=== PATIENT | male | born 1960 | race American Indian/Alaskan Native ===

== ENCOUNTER 2018-07-08 06:28 | Emergency (ER) | payer BC, OTHER ==
[~2018-07-08] VITALS: Ht 170.2 cm; Wt 122.5 kg
[~2018-07-08 06:28] MED LIST: ASPIRIN325 MG PO; CYCLOBENZAPRINE10 MG PO; JANUVIA100 MG PO; LOSARTAN POTASS25 MG PO; NORCO 5-325 TA1 EACH PO
[2018-07-08] MEDS ORDERED: ZOFRAN ODT4 MG PO (08:45)
[2018-07-08] MEDS ORDERED: FLOMAX0.4 MG PO (08:45)
[2018-07-08] MEDS ORDERED: NORCO 10-325 T1 EACH PO (08:45)
== END 2018-07-08 09:15 | disposition home or self-care (01) ==
LOC: ED 06:28
DX: N20.1 Calculus of ureter (principal); E11.9 Type 2 diabetes mellitus without complications; Z88.8 Allergy status to other drugs, medicaments and biological substances; Z79.899 Other long term (current) drug therapy
CPT/HCPCS: 74176; 80053; 81001; 83690; 85025; 96374; 96375; 99284; J1170; J1885; J2405; J7030

== ENCOUNTER 2021-10-10 13:09 | Emergency (ER) | payer OTHER, BC ==
[~2021-10-10] VITALS: Ht 170.2 cm; Wt 122.5 kg
[~2021-10-10 13:09] MED LIST changes: +CLINDAMYCIN HC300 MG PO; +FLOMAX0.4 MG PO; +LOSARTAN POTAS100 MG PO; +NORCO 10-325 T1 EACH PO; +ONGLYZA5 MG PO; +ZOFRAN ODT4 MG PO
[2021-10-10] MEDS ORDERED: OZEMPIC0.25 MG/0. SUB-Q (13:39)
[2021-10-10] MEDS ORDERED: FLUTICASONE PRO16 GM NAS (13:40)
[2021-10-10] MEDS ORDERED: HYDROCODON-ACE1 EA10 PO (15:16)
== END 2021-10-10 15:45 | disposition home or self-care (01) ==
LOC: ED 13:09
DX: S09.90XA Unspecified injury of head, initial encounter (principal); S30.0XXA Contusion of lower back and pelvis, initial encounter; W00.0XXA Fall on same level due to ice and snow, initial encounter; E11.9 Type 2 diabetes mellitus without complications; Z88.8 Allergy status to other drugs, medicaments and biological substances; Z79.899 Other long term (current) drug therapy
CPT/HCPCS: 99283

== ENCOUNTER 2021-10-21 12:50 | Emergency (ER) | payer BC, OTHER ==
[~2021-10-21] VITALS: Ht 170.2 cm; Wt 122.5 kg
[~2021-10-21 12:50] MED LIST changes: +FLUTICASONE PRO16 GM NAS; +HYDROCODON-ACE1 EA10 PO; +OZEMPIC0.25 MG/0. SUB-Q
--- OUTSIDE RECORDS SUMMARY | 2021-10-21 12:52 | XMS ---
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 Artie has no Care Guidelines for this patient. [place] VIS[facility] COUNT (12 MO.) [facility] TOTAL 3 NOTE: Visits indicate total known visits. ED/C VISIT TRACKING (12 MO.) [facility]21 12:[facility]: Emergency COMPLAINT: - STOMACH PAIN 10/10/2021 13:10 [facility] TYPE: Emergency COMPLAINT: - TAILBONE, HEAD INJURY DIAGNOSES: - Other longterm (current) drug therapy - Type 2 diabetes mellitus without complications - Allergy status to other drugs, medicaments and biological substances - Unspecified injury of head, initial encounter - Contusion of lower back and pelvis, initial encounter - Fall on same level due to ice and snow, initial encounter 10/21/2020 11:09 [facility] [place] TYPE: Emergency COMPLAINT: - SKIN PROBLEM DIAGNOSES: - Type 2 diabetes mellitus without complications - Allergy status to other drugs, medicaments and biological substances - Allergy status to other drugs, medicaments and biological substances - Other longterm (current) drug therapy - Cutaneous abscess of groin INPATIENT VISIT TRACKING (12 MO.) No inpatient visits to display in this time frame [id number]
[2021-10-21] MEDS ORDERED: FLOMAX0.4 MG PO (16:57)
[2021-10-21] MEDS ORDERED: HYDROCODON-ACE1 EA11 PO ×2 (16:57)
[2021-10-21] MEDS ORDERED: ONDANSETRON ODT8 MG PO (16:57)
== END 2021-10-21 17:20 | disposition home or self-care (01) ==
LOC: ED 12:50
DX: N20.1 Calculus of ureter (principal); E11.9 Type 2 diabetes mellitus without complications; Z88.8 Allergy status to other drugs, medicaments and biological substances; Z79.899 Other long term (current) drug therapy
CPT/HCPCS: 74176; 80048; 80053; 81001; 96374; 96375; 96376; 99284-25; A9270; J1170; J1885; J2405; J7030

== ENCOUNTER 2021-10-22 17:54 | Emergency (ER) | payer BC, OTHER ==
[~2021-10-22] VITALS: Ht 170.2 cm; Wt 122.5 kg
[~2021-10-22 17:54] MED LIST changes: +HYDROCODON-ACE1 EA11 PO; +ONDANSETRON ODT8 MG PO
--- OUTSIDE RECORDS SUMMARY | 2021-10-22 17:58 | XMS ---
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 Artie has no Care Guidelines for this patient. [place] VISIT COUNT (12 MO.) 3 [facility] TOTAL 3 NOTE: Visits indicate total known visits. ED/C VISIT TRACKING (12 MO.) 10[facility]22[facility]2021 17[facility] Emergency COMPLAINT: - LOWER ABDOMEN PAIN 10/21/2021 12:50 [facility] OR TYPE: Emergency COMPLAINT: - STOMACH PAIN 10/10/2021 13:10 [facility] OR TYPE: Emergency COMPLAINT: - TAILBONE, HEAD INJURY DIAGNOSES: - Other usp (current) drug therapy - Type 2 diabetes mellitus without complications - Allergy status to other drugs, medicaments and biological substances - Unspecified injury of head, initial encounter - Contusion of lower back and pelvis, initial encounter - Fall on same level due to ice and snow, initial encounter INPATIENT VISIT TRACKING (12 MO.) No inpatient visits to display in this time frame [id number]
[2021-10-23] MEDS ORDERED: TAMSULOSIN HCL0.4 MG PO ×2 (15:00)
[2021-10-23] MEDS ORDERED: ONDANSETRON ODT8 MG PO ×2 (15:02)
[2021-10-23] MEDS ORDERED: ALLEGRA ALLERG180 MG PO ×2 (17:15)
== END 2021-10-22 21:57 | disposition home or self-care (01) ==
LOC: ED 17:54
DX: N20.1 Calculus of ureter (principal); E11.9 Type 2 diabetes mellitus without complications; Z88.8 Allergy status to other drugs, medicaments and biological substances; Z79.899 Other long term (current) drug therapy
CPT/HCPCS: 74176; 80048; 81001; 85025; 96374; 96375; 99284-25; J1170; J1885; J2405; J7030

== ENCOUNTER 2021-10-23 09:40 | Inpatient (IN) | payer BC, OTHER ==
[~2021-10-23] VITALS: Ht 170.2 cm; Wt 122.2 kg
--- OUTSIDE RECORDS SUMMARY | 2021-10-23 14:16 | XMS ---
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 PHONE: [phone] Artie has no Care Guidelines for this patient. Care History Medical/Surgical 10/23/2021 [facility] - PATIENT IS [facility] ELIGIBLE, \T\middot;\T\nbsp; PLEASE REFER PATIENT TO [facility] FOR NON EMERGENT MEDICAL NEEDS. \T\middot;\T\nbsp; [facility] CAN SEE PATIENTS SAME DAY FOR APTS IF PATIENT CALLS FIRST THING IN THE MORNING. E.D. VISIT COUNT (12 MO.) [address] [place] [address] TOTAL 4 NOTE: Visits indicate total known visits. 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
[2021-10-23] MEDS ORDERED: TAMSULOSIN HCL0.4 MG PO ×2 (15:00)
[2021-10-23] MEDS ORDERED: ONDANSETRON ODT8 MG PO ×2 (15:02)
[2021-10-23] MEDS ORDERED: ALLEGRA ALLERG180 MG PO ×2 (17:15)
--- NOTE | 2021-10-23 20:22 | NUR ---
PT RETURNED FROM PACU @2015. A/O, HAD BEEN INCONT POST SURGERY, BUT UP TO TOLIET TO VOID, UNMEASURED, SEROSANGUINOUS URINE. PT IN ROOM WITH PT.
--- NOTE | 2021-10-23 20:30 | NUR ---
PT TO ROOM 119 FROM PACU WITH RN. REPORTS RECEIVED. ORDERS RECEIVED. PT ALERT AND ORIENTED. DENIES PAIN. REPORTS "BURNING" IN BLADDER/URETHRA AREA. DENIES FLANK PAIN. NO NAUSEA. ICE WATER AND BROTH PROVIDED. PT UP TO BR X 2 WITH SBA TO VOID RED COLORED URINE. CLEAN BRIEF PROVIDED FOR INCONTINENCE AND BLOODY DRAINAGE. POST OP VS OBTAINED. PT ORIENTED TO ROOM AND NURSE CALL LIGHT. FAMILY IN ROOM. CALL LIGHT IN REACH.
--- NOTE | 2021-10-23 20:51 | NUR ---
10/23/212050 Lluvia Mcnair 194 PT ARRIVED IN PACU RESTLESS. BLOOD SUGAR 85, USING PT'S PHONE FOR READING. DR AND ANESTHESIA AWARE. NO NEW ORDERS. 1949 C/O URGE TO VOID. ATTEMPTING TO USE URINAL WITH NO SUCCESS. 1999 ATTENDS PLACED ON PT FOR COMFORT. 2016 TO ROOM 119. UP TO BATHROOM WITH ONE PERSON ASSIST. VOIDED RED COLORED URINE. BACK IN BED. REPORT GIVEN TO RN. 2019 PT GLASSES AND PHONE RETURNED TO PT IN HIS ROOM. AND RN AT BEDSIDE.
--- NOTE | 2021-10-23 21:40 | NUR ---
SCHEDULED MEDS ADMINISTERED PER EMAR. PT BLOOD SUGAR WNL. SLIDING SCALE INSULIN HELD. PT DENIES PAIN OR NAUSEA. UP TO BR TO VOID RED COLORED URINE. BACK TO BED. POST OP VS OBTAINED. PT REPORTS NO BM FOR THE LAST THREE DAYS. NIO FOR STOOL SOFTENER ENTERED.
--- NOTE | 2021-10-23 21:55 | NUR ---
PT CALLED, INDEPENDENTLY INTO AND OUT OF BR, AND BACK TO BED. ASSIST WITH IV. SERSANG. URINE. CALL LIGHT WITHIN REACH. ON COUCH READING BOOK.
--- NOTE | 2021-10-23 22:50 | NUR ---
POST OP VS COMPLETE, WNL. STOOL SOFTENER ADMINISTERED. PT DENIES PAIN OR NAUSEA. CHIPS PROVIDED PER REQUEST. UP TO BR TO VOID. BACK TO BED. NO FURTHER NEEDS.
--- NOTE | 2021-10-23 23:23 | NUR ---
CALL LIGHT ANSWERED. PT UP TO BR TO VOID 300 ML RED COLORED URINE. BACK TO BED, RG WELL. POST OP VS COMPLETE. PT DENIES THE NEED FOR PAIN MEDICATION AT THIS TIME. NO FURTHER NEEDS. CALL LIGHT IN REACH.
--- NOTE | 2021-10-24 00:05 | NUR ---
PT UP TO BR WITH SBA TO VOID 200 ML RED COLORED URINE. BACK TO BED. IVF IFNUSING. NO FURTHER NEEDS.
--- NOTE | 2021-10-24 01:01 | NUR ---
PT UP TO BR TO VOID 200 ML RED COLORED URINE. BACK TO BED. SANDWICH BOX AND FRESH ICE WATER PROVIDED.
--- NOTE | 2021-10-24 01:29 | NUR ---
CALL LIGHT ANSWERED. PT UP TO BR TO VOID 150 ML RED COLORED URINE. GAIT STEADY. BACK TO BED. DENIES PAIN OR NAUSEA. VS OBTAINED. NO FURTHER NEEDS.
--- NOTE | 2021-10-24 02:57 | NUR ---
PT UP TO BR WITH SBA TO VOID 200 ML RED COLORED URINE. CLEAN BRIEF PROVIDED D/T BLOODY DISCHARGE. BACK TO BED. NO FURTHER NEEDS.
--- NOTE | 2021-10-24 05:03 | NUR ---
CALL LIGHT ANSWERED. PT UP TO BR WITH SBA TO VOID 200 ML RED COLORED URINE. BACK TO BED, RG WELL. PRN FOR PAIN ADMINISTERED FOR C/O BURNING WITH URINATION. NO FURTHER NEEDS. CALL LIGHT IN REACH.
--- NOTE | 2021-10-24 06:52 | NUR ---
PT UP TO BR TO VOID 200 ML RED COLORED URINE. PT INCONTINENT WELL. GUERRERO CARE SUPPLIES PROVIDED. BACK TO BED, RG WELL. VS AND I&O OBTAINED. PT DNEIES FURTHER NEEDS. CALL LIGHT IN REACH.
--- NOTE | 2021-10-24 07:34 | NUR ---
REPORT RECIEVED FROM ARGELIA GALINDO.
--- NOTE | 2021-10-24 09:12 | NUR ---
MORNING ASSESSMENT DONE. PATIENT GIVEN OXYBUTIN AND OXYCODONE FOR 5/10 LEFT SIDE/URETERAL PAIN. PATIENT REFUSED S/S INSULIN, RECHECKED BG AND IS 124. PATIENT HAS BEEN UP TO VOID 200ML OF BLOOD TINGED URINE. SPOUSE IS IN ROOM WITH PATIENT.
--- NOTE | 2021-10-24 10:27 | NUR ---
MET WITH PATIENT TO DISCUSS HIS DIET WHICH IS A 60 GM CONSISTENT CARB DIET. HE HAS BEEN EATING A LOW CARB DIET AT HOME AND WAS DOING VERY WELL WITH IT. I SHOWED HIM THE MENU WITH THE HOUSE MEAL OF THE DAY WHICH HE DID NOT WANT. I SHOWED HIM THE OPTIONS ON THE BACK AND HE WAS ABLE TO CHOOSE ITEMS HE WANTED FOR LUNCH. HE WEARS A CONTINUOUS GLUCOSE MONITOR WHICH HAS HELPED HIM QUITE A BIT WITH MANAGING HIS BLOOD SUGARS. HE IS MOTIVATED TO LOWER HIS A1C. NO OTHER NUTRITION INTERVENTION AT THIS TIME. WILL REMAIN AVAILABLE IF NEEDED.
--- NOTE | 2021-10-24 10:28 | NUR ---
PATIENT IN BED RESTING AT THIS TIME. VITALS AND I&O'S CHARTED. CALL LIGHT IN REACH. NO FURTHER NEEDS AT THIS TIME.
--- NOTE | 2021-10-24 11:13 | NUR ---
DR. MCMAHAN IN TO SEE PATIENT. PATIENT REPORTS LOWER ABD PAIN 5/10 POST OXYCODONE. PATIENT DOES REPORT FEELING BLOATED AFTER MIRILAX AND HAS NOT HAD A BM FOR OVER [address]AN TO [address] DR. SAMUEL, PATIENT REQUESTS FURTHER INFORMATIONS FROM HER.
--- NOTE | 2021-10-24 11:30 | NUR ---
Spoke with pt, Dr. Hilton and RN Jayne in room. Pt upset as he does not want to go home today. Dr. Hilton attempting to explain, Dr. Rose is ready for pt to be sent home and will follow up as OP. Dr. Hilton and Jayne left and assessment completed. Pt lives near [place] with his , Marlen. He is usually very active, hunting fishing etc. He denies needs at home, but is hesitant as he was very painful and ill the last few days. He is worried his stone on the L will descend. He does not want to go through this pain again. Discussed Dr. Rose is being called to speak with him. With further discussion, pt states he is concerned he will go home and have stroke. He staes multiple family members have had strokes and he is concerned if he has as much pain as he did the last few days he will have a stroke. We discussed strokes don't normally occur from pain. Pt's arrives and this seems to boost his mood. Awaiting visit from Dr. Rose. Pt plans on dc to home when cleared medically.
--- NOTE | 2021-10-24 11:37 | NUR ---
CALL TO DR. SAMUEL, SHE WILL BE IN TO SEE PATIENT AT 1240 TODAY. BMP LAB ENTERED, LAB CALLED TO COME DRAW LABS. UPDATED DR. MCMAHAN AND PATIENT.
[2021-10-24] MEDS ORDERED: OXYCODONE HCL5 MG PO ×2 (13:29)
[2021-10-24] MEDS ORDERED: CEPHALEXIN750 MG PO ×2 (13:30)
--- NOTE | 2021-10-24 15:45 | OR ---
[facility] [address] [place], [place] [address] Signed DATE OF OPERATION: 10/23/2021 SURGEON: Ayaan Samuel MD PREOPERATIVE DIAGNOSES: 1. Acute kidney injury. 2. Bilateral obstructing ureteral calculi. POSTOPERATIVE DIAGNOSES: 1. Acute kidney injury. 2. Bilateral obstructing ureteral calculi. 3. 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 NAMES OF PROCEDURES: 1. Diagnostic cystoscopy with bilateral retrograde pyelograms. 2. Bilateral ureteroscopy with basket extraction of right ureteral calculus. 3. Bilateral ureteral stent insertion. 4. Urethral dilation using Wexford sounds from 14-Surinamese to 26-Surinamese. ANESTHESIA: General. ESTIMATED BLOOD LOSS: None. COMPLICATIONS: None. SPECIMENS: Right ureteral calculus sent to the lab for stone analysis. DRAINS: Bilateral 6 x 26 cm double-J ureteral stents inserted into both kidneys. INDICATION FOR PROCEDURE: Mr. Hemphill is a very pleasant 61-year-old gentleman with a history of hypertension and previous nephrolithiasis, who presented to the emergency department earlier today with continued complaints of right flank pain and new onset left-sided flank pain. He had undergone a CT scan the day before, which revealed a 3-4 mm distal right ureteral calculus along with a new 2 mm left proximal ureteral calculus. Although there was no Electronically Signed By: AYAAN SAMUEL MD 10/24/21 1545 PATIENT NAME: STAN HEMPHILL III OPERATIVE REPORT DATE OF : 64 REPORT #: [id number] PHYSICIAN: AYAAN SAMUEL MD PCP: [facility] REPORT IS CONFIDENTIAL AND NOT TO BE RELEASED WITHOUT AUTHORIZATION [facility] [address] [place], [place] [address] Signed obvious hydronephrosis noted in either kidney, he was noted to be experiencing acute kidney injury. His creatinine on his initial visit on October 16 or so was 1.1. A couple days ago, his creatinine bumped to 1.6 and then as of today, his creatinine was 1.88. He was admitted to the hospitalist service and I have been consulted for definitive management of his bilateral ureteral calculi. OPERATIVE FINDINGS: 1. On cystoscopy, there was no evidence of any suspicious masses, lesions, or stones. Bilateral ureteral orifices are in their normal anatomic location. The right ureteral orifice is noted to be actively effluxing urine. 2. Bilateral retrograde pyelogram revealed an obvious 2 mm distal left ureteral calculus in the left ureter. There was no obvious filling defect or calculus noted in the right ureter on retrograde pyelogram. Bilateral renal pelves appeared mostly normal with only mild blunting of the calyces. 3. Diagnostic left ureteroscopy was performed which revealed rather severe stenosis of the distal left ureter. I attempted to pass the semi-rigid scope through the stenotic distal ureter over a wire, however, I was unsuccessful. At that time, the decision was made to go ahead and place a 6 x 26 cm ureteral stent. 4. Flexible right nephroureteroscopy was performed which revealed no evidence of stones in the right renal pelvis. I did locate the 4 mm stone in the distal right ureter. The stone was extracted using a Zero tip basket without difficulty. After the stone was extracted, a 6 x 26 cm double-J ureteral stent was inserted into the right collecting system. DESCRIPTION OF PROCEDURE: After informed consent was obtained, the patient was taken back to the operating room. He was transferred from the [facility] to the operating room table, where general anesthesia was induced. He was placed in the dorsal lithotomy position and his genitalia were prepped and draped in a standard sterile fashion. Using a 30-degree lens on a 22.5-Surinamese introducer, rigid cystoscope was inserted through his urethra and into his bladder under direct visualization. Prior to insertion of the camera, the patient's urethra was dilated from 14-Surinamese to 26-Surinamese without difficulty. Once inside the bladder, I performed a thorough diagnostic cystoscopy. Please see above findings. A cone-tipped catheter was then advanced to the level of the left ureteral orifice. A left retrograde pyelogram was performed. Please see above findings. The same process was performed using a cone-tipped catheter on the right side. Again, please see above findings. I decided to approach the left side 1st, so I attempted to pass a semi-rigid ureteroscope over a Sensor wire into the left distal ureter. The left distal ureter was very stenotic and I was unable to safely pass the ureteroscope through the transmural portion of the ureter and into the more dilated proximal portion of the ureter where the 2 mm stone was present. To avoid any iatrogenic injury to the distal Electronically Signed By: AYAAN SAMUEL MD 10/24/21 1545 PATIENT NAME: STAN HEMPHILL III OPERATIVE REPORT DATE OF : 64 REPORT #: [id number] PHYSICIAN: AYAAN SAMUEL MD PCP: [facility] REPORT IS CONFIDENTIAL AND NOT TO BE RELEASED WITHOUT AUTHORIZATION [address] [address] Signed ureter, I made the decision to abort any attempt to extract the 2 mm stone. Instead, I passed a 6 x 26 cm double-J ureteral stent over the indwelling Sensor wire and into the left collecting system under direct visualization. Adequate coil was seen in the left collecting system once the Sensor wire was pulled. I then turned my attention to the right ureter. Again, I attempted to pass a semi-rigid scope over a Sensor wire into the right ureteral orifice. I did meet some resistance, so I removed the semi-rigid scope and decided to pass a 09/02 ureteral access sheath into the right collecting system under fluoroscopic guidance. I was able to pass the sheath up into the proximal right ureter without any incident. I advanced a flexible ureteroscope through the sheath and into the right collecting system. Please see above findings. I then slowly withdrew the ureteroscope for complete evaluation of the proximal and mid right ureter. I finally found the 4 mm stone in the distal right ureter. I was able to easily extract the stone in toto using a Zero tip basket and the flexible ureteroscope. The stone was placed in the specimen cup to be sent to the lab for stone analysis. Once I was satisfied that the right ureter was completely free of stones, I reinserted a Sensor wire and then removed the ureteral access sheath. Over the Sensor wire, I passed a 6 x 26 cm double-J ureteral stent into the right collecting system under direct visualization. Once I pulled the Sensor wire, an adequate proximal coil was noted within the right renal pelvis. Cystoscopy revealed adequate distal coils on both sides. The patient's bladder was then drained and the cystoscope was removed. The procedure was then terminated. The patient tolerated the procedure well with no complication. He will now be transferred to the postanesthesia care unit in stable condition. DISPOSITION: I discussed the details of today's procedure with the patient's and answered all of her questions. I notified her that I was able to successfully extract the right ureteral calculus, however, I was unable to extract the 2 mm left ureteral calculus due to the presence of distal left ureteral stenosis. The patient will need to return to the operating room in approximately two weeks to undergo ureteroscopy with extraction of his 2 mm left ureteral calculus, followed by bilateral ureteral stent removal. In the interim, he will head back to the floor and be given IV antibiotics along with IV hydration. His BMP will be repeated in the morning to be sure that his renal function is returning to his baseline. Ayaan Samuel MD AR/MODL /[id number] Electronically Signed By: AYAAN SAMUEL MD 10/24/21 1545 PATIENT NAME: STAN HEMPHILL III OPERATIVE REPORT DATE OF : 64 REPORT #: [id number] PHYSICIAN: AYAAN SAMUEL MD PCP: [facility] REPORT IS CONFIDENTIAL AND NOT TO BE RELEASED WITHOUT AUTHORIZATION [facility] [address] [place] [id number] Signed Copies: ~ Electronically Signed By: AYAAN SAMUEL MD 10/24/21 1545 PATIENT NAME: STAN HEMPHILL III OPERATIVE REPORT DATE OF : 64 REPORT #: [id number] PHYSICIAN: AYAAN SAMUEL MD [id number] REPORT IS CONFIDENTIAL AND NOT TO BE RELEASED WITHOUT AUTHORIZATION
--- NOTE | 2021-10-25 16:35 | EKG ---
[facility] [address] [place] [address] Signed Normal sinus rhythm Normal ECG No previous ECGs available Confirmed by PEDRO MCMAHAN MD ([id number]) on 10/25/2021 4:34:56 PM Electronically Signed By: PEDRO MCMAHAN MD 10/25/21 1635 PATIENT NAME: JOBYSTAN III Electrocardiogram DATE OF : 64 PHYSICIAN: PEDRO MCMAHAN MD REPORT #: [id number] REPORT IS CONFIDENTIAL AND NOT TO BE RELEASED WITHOUT AUTHORIZATION
== END 2021-10-24 14:10 | disposition home or self-care (01) | DRG 660 ==
LOC: ED 09:40 → MS 13:49
PROVIDERS: Urology; ADMIT Internal Medicine; ATTEND Internal Medicine
PROC: 0T788DZ Dilation of Bilateral Ureters with Intraluminal Device, Via Natural or Artificial Opening Endoscopic (ICD-10-PCS; principal; 2021-10-23 18:00)
PROC: 0TC78ZZ Extirpation of Matter from Left Ureter, Via Natural or Artificial Opening Endoscopic (ICD-10-PCS; 2021-10-23 18:00)
PROC: 0TC68ZZ Extirpation of Matter from Right Ureter, Via Natural or Artificial Opening Endoscopic (ICD-10-PCS; 2021-10-23 18:00)
DX: N20.1 Calculus of ureter (principal); N17.9 Acute kidney failure, unspecified; E11.9 Type 2 diabetes mellitus without complications; I10 Essential (primary) hypertension; G89.29 Other chronic pain; Z98.890 Other specified postprocedural states; Z88.8 Allergy status to other drugs, medicaments and biological substances; Z79.899 Other long term (current) drug therapy
CPT/HCPCS: 00918; 74420; 80048; 81001; 85025; 93005; 93010; 96374; 96375; 96376; 99285-25; C1769; C2617; C9803; J0330; J0461; J0696; J1100; J1170; J1885; J2250; J2405; J2704; J2765; J3010; J7030; J7121; Q9967; U0003

== ENCOUNTER 2021-11-13 10:39 | Emergency (ER) | payer BC, OTHER ==
[~2021-11-13] VITALS: Ht 170.2 cm; Wt 115.0 kg
[~2021-11-13 10:39] MED LIST changes: +ALLEGRA ALLERG180 MG PO; +B-STRESS CAP2000 MCG PO; +CEPHALEXIN750 MG PO; +OSTERA TABLET1 EACH PO; +OXYCODONE HCL5 MG PO; +TAMSULOSIN HCL0.4 MG PO
--- OUTSIDE RECORDS SUMMARY | 2021-11-13 10:46 | XMS ---
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 Care History Medical/Surgical 10/30/2021 [facility] Contacted [facility] STOUTwarehouse shipping supervisorHzatiio-Onhuxt-zomrtluu of recent ED visits. They will follow up with the patient. 10/23/2021 [facility] - PATIENT IS [facility] ELIGIBLE, \T\middot;\T\nbsp; PLEASE REFER PATIENT TO [facility] FOR NON EMERGENT MEDICAL NEEDS. \T\middot;\T\nbsp; [facility] CAN SEE PATIENTS SAME DAY FOR APTS IF PATIENT CALLS FIRST THING IN THE MORNING. E.D. VISIT COUNT (12 MO.) 5 [facility]. TOTAL 5 NOTE: Visits indicate total known visits. ED/UCC VISIT TRACKING (12 MO.) 11/13/2021 10:40 [facility] TYPE: Emergency COMPLAINT: - UNABLE TO USE R ARM/HAND 10/23/2021 09:41 [facility] TYPE: Emergency COMPLAINT: - L FLANK PAIN 10/22/2021 17:55 [facility] [place] TYPE: Emergency COMPLAINT: - LOWER ABDOMEN PAIN DIAGNOSES: - Allergy status to other drugs, medicaments and biological substances - Calculus of ureter - Other meterman (current) drug therapy - Type 2 diabetes mellitus without complications - Unspecified abdominal pain 10/21/2021 12:50 [facility] [place] TYPE: Emergency COMPLAINT: - STOMACH PAIN DIAGNOSES: - Other chcf (current) drug therapy - Type 2 diabetes mellitus without complications - Allergy status to other drugs, medicaments and biological substances - Calculus of ureter - Unspecified abdominal pain 10/10/2021 13:10 [facility] [place] TYPE: Emergency COMPLAINT: - TAILBONE, HEAD INJURY DIAGNOSES: - Other chcf (current) drug therapy - Type 2 diabetes mellitus without complications - Allergy status to other drugs, medicaments and biological substances - Unspecified injury of head, initial encounter - Contusion of lower back and pelvis, initial encounter - Fall on same level due to ice and snow, initial encounter INPATIENT VISIT TRACKING (12 MO.) 10/23/2021 13:[address] [facility] [place] TYPE: Medical Surgical COMPLAINT: - BILAT URETERAL STONES DIAGNOSES: - Other chronic pain - Other chcf (current) drug therapy - Other specified postprocedural states - Type 2 diabetes mellitus without complications - Other specified postprocedural states - Calculus of ureter - Essential (primary) hypertension - Acute kidney failure, unspecified - Other chcf (current) drug therapy - Acute kidney failure, unspecified - Allergy status to other drugs, medicaments and biological substances - Allergy status to other drugs, medicaments and biological substances - Other chronic pain - Essential (primary) hypertension - Type 2 diabetes mellitus without complications [email or web address]
== END 2021-11-13 11:32 | disposition home or self-care (01) ==
LOC: ED 10:39
DX: M25.511 Pain in right shoulder (principal); E11.9 Type 2 diabetes mellitus without complications; Z88.8 Allergy status to other drugs, medicaments and biological substances; Z91.018 Allergy to other foods; Z79.899 Other long term (current) drug therapy
CPT/HCPCS: 99283

== ENCOUNTER 2022-08-14 10:25 | Day surgery (SDC) | payer OTHER ==
[~2022-08-14] VITALS: Ht 170.2 cm; Wt 115.9 kg
[~2022-08-14 10:25] MED LIST changes: +ASPIRIN81 MG PO
--- NOTE | 2022-08-14 12:27 | NUR ---
08/14/22 1227 Lluvia Mcnair 1205 PT ARRIVED IN PACU SLEEPY WITH NO C/O'S. ABD SOFT AND PASSING FLATUS. 1215 DR AT BEDSIDE TALKING WITH PT. ALL QUESTIONS ANSWERED. 1225 RESTING. REU.
--- NOTE | 2022-08-15 10:58 | OR ---
[facility] [address], [place] [address] Signed DATE OF OPERATION: 08/14/2022 SURGEON: Griffin Trinh MD PREOPERATIVE DIAGNOSIS: History of polyps. POSTOPERATIVE DIAGNOSES: 1. Sigmoid diverticulosis. 2. Polyps x3. PROCEDURE: Total colonoscopy to cecum with cold morcellation polypectomy x1 and cold snare polypectomy x2 (one specimen lost). ANESTHESIA: Intravenous sedation, fentanyl 200 mcg and Versed 10 mg. INDICATION: This 62-year-old [place] man, who is a patient of Dr. Jaffe at [facility] and underwent colonoscopy greater than [address] Dom Copeland. The polyps were said to have been identified. He was admitted at this time to undergo colonoscopy for surveillance. He understands the risks of bleeding, infection, and perforation. FINDINGS: The prep was good. Complete colonoscopy was undertaken of the cecum. He had numerous diverticula of the sigmoid colon. He had 3 polyps in total, all of them small, none of them malignant in appearance. All were on the left side. Two were in the left colon, two in the sigmoid. One of the snared polyps was lost, was not sent for pathology. PROCEDURE IN DETAIL: The patient was brought to the endoscopy suite and placed in lateral decubitus position given intravenous sedation to the points of slurred speech and nystagmus with full cardiopulmonary monitoring. Digital rectal examination was normal. An Olympus video colonoscope was passed in the rectum and manipulated noting diverticulosis of the sigmoid and left colon. Scope was ultimately passed to the cecum. The ileocecal valve and appendiceal orifice were normal. Scope was withdrawn. Examination showed no sign of abnormality until approximately 90 cm from the anal verge, where a small sessile polyp was noted, this was excised with cold morcellation technique. Further withdrawal of scope showed 2 small polyps of much larger than the diminutive polyp. Both were Electronically Signed By: GRIFFIN TRINH MD 08/15/22 1058 PATIENT NAME: STAN HEMPHILL III OPERATIVE REPORT DATE OF : 64 REPORT #: [id number] PHYSICIAN: GRIFFIN TRINH MD PCP: [facility] REPORT IS CONFIDENTIAL AND NOT TO BE RELEASED WITHOUT AUTHORIZATION [facility] [address], [place] [address] Signed excised with cold snare technique, one of which was lost in retrieval despite efforts to avoid that. Further withdrawal of scope showed no other findings of concern. The scope was removed. The patient was taken to the recovery room in good condition. CONCLUDING DIAGNOSES: 1. Diverticulosis. 2. Polyps x3. PLAN: Recommend repeat colonoscopy in 5 years or sooner if clinically indicated. He will return to the ongoing care of Dr. Jaffe at [facility]. MD JT Estrada/YOSSIL /[id number] Copies: ~ Electronically Signed By: GRIFFIN TRINH MD 08/15/22 1058 PATIENT NAME: STAN HEMPHILL CROW OPERATIVE REPORT DATE OF : 64 REPORT #: [id number] PHYSICIAN: GRIFFIN TRINH MD PCP: [facility] REPORT IS CONFIDENTIAL AND NOT TO BE RELEASED WITHOUT AUTHORIZATION
--- NOTE | 2022-08-16 15:56 | PATH ---
[facility] [address] [facility] [place], [place] [address] Signed SPECIMEN(S): A DESCENDING/LEFT COLON POLYP SPECIMEN(S): B SIGMOID POLYP SPECIMEN SOURCE: A. DESCENDING/LEFT COLON POLYP B. SIGMOID POLYP CLINICAL HISTORY: Hx of polyps. Post op: Polyps x 3. FINAL PATHOLOGIC DIAGNOSIS: A. Descending / left colon polyp: - Hyperplastic polyp (one fragment). B. Sigmoid polyp: - Tubular adenoma (one fragment). JVR:[facility]:C2NR MICROSCOPIC EXAMINATION: Histologic sections of all submitted blocks are examined by light microscopy. These findings, together with the gross examination, support the pathologic diagnosis. GROSS DESCRIPTION: Two specimens are received in two containers, labeled "Stan Carias." A. The specimen, labeled " Stan Carias," and designated on the requisition "descending polypectomy," is received in formalin and consists of one tierney soft tissue fragment(s) that measure 0.3 cm in greatest dimension. The specimen is entirely submitted in cassette (A1). B. The specimen, labeled " Stan Carias, #2," and designated on the requisition "sigmoid polyp," is received in formalin and consists of one tierney soft tissue fragment(s) that measure 0.6 cm in greatest dimension. The specimen is inked, bisected, and entirely submitted in cassette (B1). FB (under the direct supervision of a pathologist) The Gross Description was prepared using a voice recognition system. The report was reviewed for accuracy; however, sound-alike word errors, addition and/or deletions may occur. If there is any question about this report, please contact Client Services. PERFORMING LABORATORY: The technical component was performed by [employer], Anat Cravenmartin Mark, PATIENT NAME: STAN CARIAS III PATHOLOGY DATE OF : 64 REPORT #: [id number] PHYSICIAN: THANH PATHOLOGY PCP: [facility] REPORT IS CONFIDENTIAL AND NOT TO BE RELEASED WITHOUT AUTHORIZATION [facility] [address] [place] [id number] [place] [address] (CLIA# [id number]). Diagnostician: Aditya Alba MD Pathologist Electronically Signed 08/16/2022 Copies: ~ PATIENT NAME: STAN CARIAS III PATHOLOGY DATE OF : 64 REPORT #: [id number] PHYSICIAN: THANH PATHOLOGY PCP: [facility] REPORT IS CONFIDENTIAL AND NOT TO BE RELEASED WITHOUT AUTHORIZATION
== END 2022-08-14 13:00 | disposition home or self-care (01) ==
LOC: OPS 10:25 → DS 10:28 → OPS 12:00 → DS 13:00
PROVIDERS: ATTEND Surgery
PROC: 0DBN8ZX Excision of Sigmoid Colon, Via Natural or Artificial Opening Endoscopic, Diagnostic (ICD-10-PCS; 2022-08-14)
PROC: 0DBG8ZX Excision of Left Large Intestine, Via Natural or Artificial Opening Endoscopic, Diagnostic (ICD-10-PCS; principal; 2022-08-14 12:00)
DX: Z12.11 Encounter for screening for malignant neoplasm of colon (principal); Z86.010 Personal history of colon polyps; I10 Essential (primary) hypertension; E11.9 Type 2 diabetes mellitus without complications; Z87.442 Personal history of urinary calculi; K63.5 Polyp of colon; K57.30 Diverticulosis of large intestine without perforation or abscess without bleeding; D12.5 Benign neoplasm of sigmoid colon
CPT/HCPCS: 88305; 99153; G0500; J2250; J3010; J7121

== ENCOUNTER 2023-03-12 03:55 | Emergency (ER) | payer OTHER ==
[~2023-03-12] VITALS: Ht 170.2 cm; Wt 116.0 kg
--- OUTSIDE RECORDS SUMMARY | 2023-03-12 04:10 | XMS ---
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 PHONE: [phone] Artie has no Care Guidelines for this patient. Care History Medical/Surgical 10/30/2021 [facility] Contacted Bowen STOUTroller skaterJbcjuoz-Thupeg-amgnisrm of recent ED visits. They will follow up with the patient. 10/23/2021 [facility] - PATIENT IS BOWEN CAMACHO, \T\middot;\T\nbsp; PLEASE REFER PATIENT TO [facility] FOR NON EMERGENT MEDICAL NEEDS. \T\middot;\T\nbsp; [facility] CAN SEE PATIENTS SAME DAY FOR APTS IF PATIENT CALLS FIRST THING IN THE MORNING. E.D. VISIT COUNT (12 MO.) 1 BOBBY Dubois TOTAL 1 NOTE: Visits indicate total known visits. ED/UCC VISIT TRACKING (12 MO.) 03/12/2023 03:55 BOBBY Hair OR TYPE: Emergency COMPLAINT: - BLOOD SUGAR ISSUES INPATIENT VISIT TRACKING (12 MO.) No inpatient visits to display in this time frame [email or web address]
[2023-03-12 05:32] VITALS: BP 102/53
== END 2023-03-12 05:32 | disposition home or self-care (01) ==
LOC: ED 03:55
DX: E11.649 Type 2 diabetes mellitus with hypoglycemia without coma (principal); I10 Essential (primary) hypertension; Z88.8 Allergy status to other drugs, medicaments and biological substances; Z91.018 Allergy to other foods; Z79.899 Other long term (current) drug therapy; Z79.82 Long term (current) use of aspirin
CPT/HCPCS: 36415; 80053; 85025; A9270; J2405; J7030

== ENCOUNTER 2024-10-14 23:26 | Emergency (ER) | payer OTHER ==
[~2024-10-14] VITALS: Ht 170.2 cm; Wt 117.8 kg
[2024-10-15 00:27] LABS: BILIRUBIN, URINE NEGATIVE (negative); BLOOD/HGB, URINE NEGATIVE (Negative); KETONE, URINE NEGATIVE (Negative); LEUK ESTERASE, URINE NEGATIVE (negative); NITRITE, URINE NEGATIVE (negative); PH, URINE 5.5 (5-7)
[2024-10-15 00:34] LABS: EPITHELIAL CELLS, URINE SQUAMOUS 2+ /lpf (0-1+); RED BLOOD CELLS, URINE 0-1 /hpf (0-5)
[2024-10-15 00:35] LABS: BACTERIA, URINE NONE SEEN /hpf (negative); CASTS, URINE NONE SEEN \\lpf; COLLECTION TYPE, URINE CLEAN CATCH; CRYSTALS, URINE NONE SEEN (0-1+); REFLEX CULTURE, URINE No (No)
[2024-10-15] MEDS ORDERED: SODIUM CHLORIDE 0.9% 1,000 ML IV ONE (00:45)
[2024-10-15] MEDS ORDERED: KETOROLAC TROMETHAMINE 30 MG/ML VIAL IV ONE (00:45)
[2024-10-15] MEDS ORDERED: ondansetron HCL 4 MG/2 ML VIAL IV ONE (00:45)
[2024-10-15] MEDS ORDERED: MORPHINE SULFATE 4 MG/ML VIAL IV ONE (00:45)
[2024-10-15 00:49] LABS: BASOPHILS 0.6 % (0-2); EOSINOPHILS 5.9 % (0-6); HEMATOCRIT 44.9 % (35.0-50.0); HEMOGLOBIN 15.5 g/dL (12.0-18.0); LYMPHOCYTES 27.9 % (24-44); MCH 32.4 (27-36); MCHC 34.6 g/dl (30-36); MCV 93.9 fl (81-99); MONOCYTES 7.1 % (0-12); NEUTROPHILS 58.5 % (39-80); PLATELET COUNT 213 K/uL (140-440); RBC 4.78 M/ul (4.3-5.7); RDW 14.2 (10.5-15.0)
[2024-10-15 01:07] LABS: ALBUMIN 3.5 g/dL (3.4-5.0); ALBUMIN/GLOBULIN RATIO 1.06 (1.1-2.4); ALKALINE PHOSPHATASE 75 U/L (46-116); ALT (SGPT) 25 U/L (14-59); ANION GAP 15.9 (7-21); AST (SGOT) 14 U/L (15-37); BILIRUBIN, TOTAL 0.4 ng/dL (0.2-1.0); BUN/CREATININE RATIO 21.05 (6.0-28.6); CALCIUM 8.5 mg/dL (8.5-10.1); CARBON DIOXIDE 24 mmol/L (21-32); CHLORIDE 103 mmol/L (98-107); CREATININE, SERUM 1.14 mg/dL (0.70-1.30); GLOMERULAR FILTRATION RATE,EST 73 mL/min (>60); POTASSIUM 3.9 mmol/L (3.5-5.1); PROTEIN, TOTAL 6.8 g/dL (6.4-8.2); UREA NITROGEN 24 mg/dL (7-18)
[2024-10-15] MEDS ORDERED: HYDROCODON-ACE1 EA10 PO (02:51)
[2024-10-15] MEDS ORDERED: HYDROCODONE BIT/ACETAMINOPHEN 5/325 MG 1 TAB HOME.PACK PO ONE (03:00)
[2024-10-15 03:30] VITALS: BP 114/74
== END 2024-10-15 02:00 | disposition home or self-care (01) ==
LOC: ED 23:26
PROVIDERS: Family Medicine
DX: R10.9 Unspecified abdominal pain (principal); E11.9 Type 2 diabetes mellitus without complications; I10 Essential (primary) hypertension; Z88.8 Allergy status to other drugs, medicaments and biological substances; Z91.018 Allergy to other foods; Z79.82 Long term (current) use of aspirin; Z79.899 Other long term (current) drug therapy
CPT/HCPCS: 36415; 74176; 80053; 81001; 83690; 85025; 96374; 96375; 99284-25; A9270; J1885; J2270; J2405; J7030